=== PATIENT | female | born 1935 | race Caucasian/White ===

== ENCOUNTER → 2017-02-05 | Outpatient (CLI) | payer MEDICARE, BC ==
--- NOTE | 2017-02-06 11:09 | RADRPT ---
EXAM DATE/TIME: 02/05/2017 14:36 [place] COMPARISON: No previous studies available for comparison. INDICATIONS : Right hip replacement. Right hip pain. Femoral cystic changes in right hip. DOSE: 21 mCi Tc99m Ceretec labeled white blood cells IV PLANAR IMAGIN min, 3 hrs, 20 hrs SPECT IMAGIN hrs, 20 hrs IMAGNG: SPECT/CT imaging with fusion was performed. RADIATION DOSE: 8.08 CTDIvol (mGy) MEDICAL HISTORY : Carcinoma, squamous cell. Hypertension. SURGICAL HISTORY : Cholecystectomy. ENCOUNTER: Initial ACUITY: 2 days PAIN SCALE: 2/10 LOCATION: TECHNIQUE: Following the in vitro labeling of autologous white cells and reinjection, whole body scan was perfor med at the specified times. Imaging was performed at specified times in sagittal, axial and coronal planes. Attenuation correction was performed with computed tomography and both the attenuation corre ction and non-attenuation corrected data sets were reviewed. FINDINGS: There is a right hip prosthesis with the stem component extending into the right femoral shaft. There is some activity proximally around the stem component but the intensity is similar to that seen in t he remainder of the bony pelvis. No definite evidence for osteomyelitis. No abnormal soft tissue upta ke. CONCLUSION: 1. Right hip prosthesis as above. No definite evidence for osteomyelitis or soft tissue infection. Jonathan Srivastava MD on February 06, 2017 at 10:59 Board Certified Radiologist. This report was verified electronically.
== END ==
LOC: HRAD 08:42
PROVIDERS: ATTEND Family Medicine
DX: M86.9 Osteomyelitis, unspecified (principal)
CPT/HCPCS: 78806; 78807; 78999; A9569